=== PATIENT | male | born 1955 | race Caucasian/White ===

== ENCOUNTER 2022-10-02 03:02 | Inpatient (IN) | payer MEDICARE, OTHER ==
[~2022-10-02] VITALS: Ht 167.6 cm; Wt 83.9 kg
--- NOTE | 2022-10-02 03:12 | NUR ---
TO ER BED 4, BIBRA 102 FROM HOME FOR C/O ON AND OFF CP SINCE 1999. RECEIVED 2 NITRO SPRAYS AND 325MG OF ASA FASHION ADVISER, AAOX4, BREATHING EVEN AND NON LABORED, CONNECTED TO MONITOR, AWAITING MD SALVADOR
--- NOTE | 2022-10-02 03:25 | NUR ---
COVID SWAB COLLECTED
[2022-10-02 03:56] LABS: BASOPHILS # (AUTO) 0.1 K/uL (0.0-0.2); BASOPHILS % (AUTO) 0.8 % (0.0-2.0); EOSINOPHILS % (AUTO) 1.7 % (0.0-6.0); HEMATOCRIT 41 % (39-51); HEMOGLOBIN 13.1 g/dL (13.5-17.5); LYMPHOCYTES # (AUTO) 1.9 K/uL (0.8-4.8); MEAN CORPUSCULAR HGB CONC 32 g/dl (31.0-36.0); MEAN CORPUSCULAR VOLUME 87 fL (80-96); MONOCYTES % (AUTO) 10.4 % (2.0-12.0); NEUTROPHILS # (AUTO) 6.5 K/uL (1.8-8.9); NEUTROPHILS % (AUTO) 67.1 % (43.0-81.0); PLATELET COUNT (AUTO) 308 K/uL (150-450); RED BLOOD CELL COUNT(AUTO) 4.68 MIL/uL (4.5-6.0); WHITE BLOOD COUNT (AUTO) 9.7 K/uL (4.3-11.0)
[2022-10-02 04:05] LABS: CALCIUM, SERUM 9.1 mg/dL (8.5-10.1); CARBON DIOXIDE 28 mmol/L (21-32); CHLORIDE 99 mmol/L (98-107); CREATININE 1.2 mg/dL (0.6-1.3); GLUCOSE 212 mg/dL (74-106); POTASSIUM 4.9 mmol/L (3.5-5.1); SODIUM SERUM 135 mmol/L (136-145); UREA NITROGEN, BLOOD 16 mg/dL (7-18)
[2022-10-02 04:07] LABS: D-DIMER 0.35 mg/L(FEU (0.17-0.50)
--- NOTE | 2022-10-02 04:50 | NUR ---
US TECH AT BED SIDE
--- NOTE | 2022-10-02 06:13 | NUR ---
TAKEN TO CT VIA PITO
[2022-10-02] MEDS ORDERED: Z GUARD REMEDY 4 OZ OINT TP PRN (07:00)
[2022-10-02] MEDS ORDERED: ACETAMINOPHEN 325 MG TABLET PO PRN (07:00)
[2022-10-02] MEDS ORDERED: MAG HYDROX/AL HYDROX/SIMETH 30 ML UDC PO PRN (07:00)
[2022-10-02] MEDS ORDERED: ONDANSETRON HCL/PF 4 MG/2 ML VIAL IVP PRN (07:00)
[2022-10-02] MEDS ORDERED: ZOLPIDEM TARTRATE 5 MG TABLET PO PRN (07:00)
[2022-10-02] MEDS ORDERED: MAGNESIUM HYDROXIDE 30 ML UDC PO PRN (07:00)
[2022-10-02] MEDS ORDERED: ASPIRIN 81 MG TAB.CHEW PO PRN (07:30)
[2022-10-02] MEDS ORDERED: *INSULIN REGULAR(HUMULIN R)HUM 100 UNIT/ML VIAL SQ PRN (07:30)
[2022-10-02] MEDS ORDERED: DEXTROSE 50%-WATER 50 ML DISP.SYRIN IV PRN (07:30)
--- NOTE | 2022-10-02 07:42 | NUR ---
room 312-1
[2022-10-02] MEDS ORDERED: ICOS1CAP PO (07:43)
[2022-10-02] MEDS ORDERED: UBID100C13 PO (07:43)
[2022-10-02] MEDS ORDERED: EZET10TA32 PO (07:43)
[2022-10-02] MEDS ORDERED: ASPI-1420 PO (07:43)
[2022-10-02] MEDS ORDERED: B CO1TAB6 PO (07:43)
[2022-10-02] MEDS ORDERED: DAPA10TA PO (07:43)
[2022-10-02] MEDS ORDERED: GLIM4TAB37 PO (07:43)
[2022-10-02] MEDS ORDERED: METO-357 PO (07:43)
[2022-10-02] MEDS ORDERED: PANT40TA49 PO (07:43)
[2022-10-02] MEDS ORDERED: METF-442 PO (07:43)
[2022-10-02] MEDS ORDERED: CLOP75TA15 PO (07:43)
[2022-10-02] MEDS ORDERED: PIOG30TA10 PO (07:43)
[2022-10-02] MEDS ORDERED: SEMA7TAB PO (07:43)
[2022-10-02] MEDS ORDERED: ATOR40TA PO (07:43)
[2022-10-02] MEDS ORDERED: MULT-447 PO (07:43)
--- NOTE | 2022-10-02 08:13 | NUR ---
MEGHA MCGOWAN, WILL CALL BACK FOR REPORT
--- NOTE | 2022-10-02 08:20 | NUR ---
OKAY FOR PT TO EAT BREAKFAST PER DR TORRE.
--- NOTE | 2022-10-02 08:24 | NUR ---
PT REPORT GIVEN TO MEGHA MCGOWAN
[2022-10-02] MEDS ORDERED: SEMAGLUTIDE 7 MG PO SCH (09:00)
[2022-10-02] MEDS ORDERED: methylPREDNISolone SOD SUCC 125 MG/2ML VIAL IV ONE (10:30)
[2022-10-02 10:47] VITALS: BP 126/91
[2022-10-02 10:50] VITALS: BP 126/91
[2022-10-02] MEDS: BLOOD SUGAR DIAGNOSTIC 1 EACH STRIP VI SCH ×4 (10:50→21:45)
--- NOTE | 2022-10-02 10:54 | NUR ---
PT TRANSFERRED TO 312-1 VIA [facility] ACLS PROTOCOL. WARM HANDOFF GIVEN TO MEGHA MCGOWAN.
--- NOTE | 2022-10-02 11:00 | NUR ---
ENTRY LEVEL SOFTWARE ENGINEER ADMITTING NOTES ADMITTED THIS 67 YO MALE TO UNIT AT 1047 VIA GURNEY WITH DX OF CHEST PAIN. PT IS AOX4, ABLE TO MAKE NEEDS KNOWN, SPEAKS FARSI MAINLY, SPEAKS TELUGU FLUENTLY, ORIENTED TO ROOM AND STAFF. VS TAKEN AND RECORDED, PATIENT IS STABLE, DENIES CHEST PAIN OR DISCOMFORT AT THE MOMENT. ON TELEMONITORING WHICH READS SINUS RHYTHM WITH 67 BPM/ ON ROOM AIR, BREATHING EVEN AND UNLABORED. IV ACCESSES NOTED ON LH G#20 AND RAC G#20 SL, BOTH INTACT, PATENT, AND FLUSHING WELL. LUNGS CLEAR ON AUSCULTATION BILATERALLY. ABDOMEN SOFT AND NON-TENDER WITH + BOWEL SOUNDS ON ALL FOUR QUADRANTS. NO SKIN ISSUES NOTED. SAFETY MEASURES IN PLACE: BED IN LOWEST AND LOCKED POSITION, SIDE RAILS X2, CALL LIGHT AND TRAY TABLE WITHIN EASY REACH. WILL CONTINUE TO MONITOR.
--- NOTE | 2022-10-02 11:45 | NUR ---
RN NOTES - CONFIRMED WITH DR TORRE THAT PT WILL NOT REQUIRE NPO AND BE PUT ON CONSISTED CARB DIET VS CARDIAC DIET (PREVIOUS DIET)
[2022-10-02 12:00] VITALS: BP 113/58
[2022-10-02] MEDS: VALSARTAN 80 MG TABLET PO SCH (12:06)
[2022-10-02] MEDS: METFORMIN 500 MG TABLET PO SCH ×2 (12:07→16:01)
[2022-10-02] MEDS: EZETIMIBE 10 MG TABLET PO SCH (12:07)
[2022-10-02] MEDS: GLIMEPIRIDE 4 MG TABLET PO SCH ×2 (12:07→16:01)
[2022-10-02] MEDS: CLOPIDOGREL BISULFATE 75 MG TABLET PO SCH (12:07)
[2022-10-02] MEDS: PANTOPRAZOLE 40 MG TABLET.DR PO SCH (12:08)
[2022-10-02] MEDS: APIXABAN 5 MG TABLET PO SCH ×2 (12:08→16:02)
[2022-10-02] MEDS: METOPROLOL SUCCINATE 50 MG TAB.SR.24H PO SCH (12:09)
[2022-10-02] MEDS: INSULIN REGULAR, HUMAN 100 UNIT/ML 3 ML VIAL SQ PRN ×3 (12:11→21:43)
[2022-10-02] MEDS: ASPIRIN EC 81 MG TABLET.DR PO SCH (12:20)
--- NOTE | 2022-10-02 15:01 | NUR ---
RN NOTES - RECEIVED A CALL FROM PHARMACY - NO FORMULARY FOR HOME MEDS JETT, REBTREVS, VASCEPA - INFORMED PATIENT TO ASK FAMILY TO PROVIDE SO WE CAN DISPENSE. PT AGREED, WILL CONTINUE TO FOLLOW UP.
--- NOTE | 2022-10-02 15:22 | NUR ---
RN NOTES - DR TORRE ORDERED CT SCAN OF THE ABDOMEN WITH CONTRAST. PT IS ALLERGIC TO IODINE - HIVES, ITCH, AND SHAKING, WANTS TO PROCEED WITH THE PROCEDURE STILL. ORIGINALLY ORDERED SOLU-MEDROL 125 MG VIA IV ONCE 30 MINS PRIOR TO THE PROCEDURE. SPOKE WITH MACK Esphion AND ASKED FOR THE MD TO CHANGE DOSE TO SOLUMEDROL 40 MG IV AND BENADRYL 50 MG IV ONE HOUR PRIOR TO THE PROCEDURE PER PROTOCOL. APPROVED, I INFORMED LILLY, JUST AWAITING GO SIGNAL FROM THEM AT 1520, WILL CALL AGAIN AFTER 30 MINS TO CONFIRM PROCEDURE PREP.
[2022-10-02] MEDS: PIOGLITAZONE HCL 15 MG TABLET PO SCH (15:29)
[2022-10-02] MEDS ORDERED: diphenhydrAMINE HCL 50 MG/ML VIAL IV PRN (15:30)
[2022-10-02] MEDS ORDERED: methylPREDNISolone SOD SUCC 40 MG/ML VIAL IV PRN (15:30)
[2022-10-02 16:00] VITALS: BP 140/88
[2022-10-02] MEDS ORDERED: CT SWABBABLE VALVE TRANS SET 1 EA INFUS.SET MC ONE (16:13)
[2022-10-02] MEDS ORDERED: IV NS 0.9% 250 ML IV ONE (16:13)
[2022-10-02] MEDS ORDERED: IOHEXOL-300 100 ML VIAL IV ONE (16:13)
--- NOTE | 2022-10-02 16:35 | NUR ---
RN NOTES - PATIENT REPORTS NAUSEA AFTER SOLU-MEDROL AND DIPHENHYDRAMINE IV - GIVEN PATIENT BAG. ADMINISTERED ZOFRAN 4 MG VIA IV. WILL CONTINUE TO MONITOR.
--- NOTE | 2022-10-02 16:37 | NUR ---
RN NOTES -PATIENT TAKEN TO CT SCAN VIA HIS BED
--- NOTE | 2022-10-02 17:15 | NUR ---
RN NOTES - PATIENT BACK FROM CT SCAN PROCEDURE WITH , PATIENT ASLEEP, NO NOTED ALLERGIC REACTIONS, NOT IN ANY FORM OF RESPIRATORY DISTRESS.
[2022-10-02] MEDS ORDERED: ATORVASTATIN 40 MG TABLET PO SCH (18:00)
--- NOTE | 2022-10-02 18:48 | NUR ---
WALLPAPER INSPECTOR AND SHIPPER CLOSING NOTES PATIENT AWAKE IN BED WITH HOB ELEVATED, AOX4, CALM AND COOPERATIVE, ON ROOM AIR WITH NO SHORTNESS OF BREATH NOTED, BREATHING EVEN AND UNLABORED, PATIENT DENIES CHEST PAIN OR ANY DISCOMFORT AT THE MOMENT. STILL WITH THE SAME IV ACCESSES, SL, INTACT. NOT SHOWING ANY SIGNS OR SYMPTOMS OF ALLERGIC REACTION FROM IODINE. SAFETY MEASURES MAINTAINED: BED IN LOWEST AND LOCKED POSITION, SIDE RAILS X2 UP, TRAY TABLE AND CALL LIGHT WITHIN EASY REACH. WILL ENDORSE TO THE SALES SUPPORT MANAGER NURSE.
--- NOTE | 2022-10-02 18:52 | NUR ---
TELEMONITORING SHOWS SINUS RHYTHM WITH 73 BPM.
--- NOTE | 2022-10-02 19:38 | NUR ---
RN OPENING NOTE; RECEIVED PT IN BED AAOX4 FAMILY AT BEDSIDE,ABLE TO MAKE NEEDS KNOWN,CHECO WELL ON RM AIR SATTING 99%,NO SIGN SOB/DISTRESS NOTED,NO COMPLAIN OF PAIN/DISCOMFORT AT THIS TIME,SAFETY MEASURE IN PLACE,CALL LIGHT WITHIN REACH,WILL CONTINUE TO MONITOR.
[2022-10-02 20:00] VITALS: BP 133/67
--- NOTE | 2022-10-02 23:21 | NUR ---
RN NOTE; PATIENT COMPLAINED ITCHING ALL OVER HIS BODY,TEXTED INTERVENTION ANALYST VIVIEN WEATHERS.WITH A NEW ORDER 1V 50MG X1.
[2022-10-02] MEDS ORDERED: diphenhydrAMINE HCL 50 MG/ML VIAL IV ONE (23:30)
[2022-10-03] VITALS: BP 129/73
[2022-10-03 04:00] VITALS: BP 142/79
--- NOTE | 2022-10-03 04:09 | NUR ---
RN NOTES; PT COMPLAINED OF ITCHY AND SHAKING,BODY LOOK RED,TEXTED BILLET INSPECTOR JASIEL PUGA,WITH A NEW ORDER,SOLU MEDROL 40MG IV X1 AND BENADRYL 50MG IV X1.
[2022-10-03] MEDS ORDERED: methylPREDNISolone SOD SUCC 40 MG/ML VIAL IV ONE (04:30)
[2022-10-03] MEDS ORDERED: IV NS 0.9% 1,000 ML IV ONE (04:30)
[2022-10-03] MEDS ORDERED: diphenhydrAMINE HCL 50 MG/ML VIAL IV ONE (04:30)
[2022-10-03 06:08] LABS: BASOPHILS # (AUTO) 0.1 K/uL (0.0-0.2); BASOPHILS % (AUTO) 0.6 % (0.0-2.0); EOSINOPHILS % (AUTO) 0.3 % (0.0-6.0); HEMATOCRIT 42 % (39-51); HEMOGLOBIN 13.5 g/dL (13.5-17.5); LYMPHOCYTES # (AUTO) 0.8 K/uL (0.8-4.8); LYMPHOCYTES % (AUTO) 7.1 % (20.0-44.0); MEAN CORPUSCULAR HGB CONC 32 g/dl (31.0-36.0); MEAN CORPUSCULAR VOLUME 86 fL (80-96); MONOCYTES # (AUTO) 0.6 K/uL (0.1-1.30); MONOCYTES % (AUTO) 4.8 % (2.0-12.0); NEUTROPHILS # (AUTO) 10.2 K/uL (1.8-8.9); NEUTROPHILS % (AUTO) 87.2 % (43.0-81.0); PLATELET COUNT (AUTO) 319 K/uL (150-450); RED BLOOD CELL COUNT(AUTO) 4.85 MIL/uL (4.5-6.0); WHITE BLOOD COUNT (AUTO) 11.7 K/uL (4.3-11.0)
--- NOTE | 2022-10-03 06:21 | NUR ---
RN CLOSING NOTE; PT IN BED AAOX4,ABLE TO MAKE NEEDS KNOWN,CHECO WELL ON RM AIR SATTING 98%,NO SIGN SOB/DISTRESS NOTED,NO COMPLAIN OF PAIN/DISCOMFORT DURING SHIFT,DUE MEDS GIVEN ORDER,ALL NEEDS ATTENDEDIV ACCESS ON LHAND 20G,RAC 20G SL PATENT AND INTACT,,SAFETY MEASURE IN PLACE,CALL LIGHT WITHIN REACH,WILL ENDORSED TO NEXT SHIFT.
[2022-10-03] MEDS: INSULIN REGULAR, HUMAN 100 UNIT/ML 3 ML VIAL SQ PRN ×2 (06:46→11:44)
[2022-10-03] MEDS: BLOOD SUGAR DIAGNOSTIC 1 EACH STRIP VI SCH ×2 (06:47→11:43)
--- NOTE | 2022-10-03 07:26 | NUR ---
TERMINAL GAUGER OPENING NOTE: PT RECEIVED IN BED, AWAKE. A/O X 4. ON RA, TOLERATED WELL. WITH NO SIGN OF ACUTE RESPIRATORY DISTRESS. ABLE TO MAKE NEEDS KNOWN. NO C/O PAIN AND DISCOMFORT AT THIS TIME. REDNESS IN THE BODY PARTICULARLY IN THE BACK, LEGS AND FEET NOTED. IV ACCESS IN L HAND #20G AND RAC #20G SL, C/D/I. WITH CYBER LEGAL ADVISOR IN SR, HR-99. SAFETY MEASURE IN PLACE: CALL LIGHT AND TRAY TABLE WITHIN REACH, BED LOCKED AND IN LOWEST POSITION, SIDE RAILS X 2. WILL CONTINUE TO MONITOR.
[2022-10-03 07:34] LABS: CALCIUM, SERUM 9.1 mg/dL (8.5-10.1); CREATININE 1.3 mg/dL (0.6-1.3); MAGNESIUM 1.8 mg/dL (1.8-2.4); PHOSPHORUS 3.5 mg/dL (2.5-4.9); POTASSIUM 4.9 mmol/L (3.5-5.1)
[2022-10-03 08:00] VITALS: BP 139/68
[2022-10-03] MEDS: METOPROLOL SUCCINATE 50 MG TAB.SR.24H PO SCH (08:47)
[2022-10-03] MEDS: EZETIMIBE 10 MG TABLET PO SCH (08:47)
[2022-10-03 08:48] VITALS: BP 139/68
[2022-10-03] MEDS: GLIMEPIRIDE 4 MG TABLET PO SCH (08:48)
[2022-10-03] MEDS: APIXABAN 5 MG TABLET PO SCH (08:48)
[2022-10-03] MEDS: ASPIRIN EC 81 MG TABLET.DR PO SCH (08:48)
[2022-10-03] MEDS: VALSARTAN 80 MG TABLET PO SCH (08:48)
[2022-10-03] MEDS: METFORMIN 500 MG TABLET PO SCH (08:49)
[2022-10-03] MEDS: PIOGLITAZONE HCL 15 MG TABLET PO SCH (08:49)
[2022-10-03] MEDS: CLOPIDOGREL BISULFATE 75 MG TABLET PO SCH (08:49)
[2022-10-03] MEDS: PANTOPRAZOLE 40 MG TABLET.DR PO SCH (08:49)
[2022-10-03] MEDS ORDERED: FARXIGA 10 MG PO SCH (09:00)
[2022-10-03] MEDS ORDERED: VASCEPA 1 GM PO SCH (09:00)
[2022-10-03] MEDS ORDERED: METH4TAB16 PO (12:08)
[2022-10-03] MEDS ORDERED: INSULIN REGULAR, HUMAN 100 UNIT/ML 10 ML VIAL SQ ONE (13:00)
--- NOTE | 2022-10-03 13:03 | NUR ---
RN NOTES PT NOTED WITH BS OF 403MG/DL, REJECTED AND REPEATED WITH RESULT OF 413MG/DL. REGULAR INSULIN 15UNITS ADMINISTERED PER SLIDING SCALE. BLOOD SUGAR RECHECKED AFTER 30 MINUTES AND STILL HIGH 406MG/DL. DR TORRE MADE AWARE WITH ORDER TO ADMINISTER EXTRA 15 UNITS OF REGULAR INSULIN AND WAS CARRIED OUT. WILL CONTINUE TO MONITOR.
--- NOTE | 2022-10-03 16:35 | NUR ---
RN DISCHARGED NOTE PT DISCHARGED HOME IN STABLE CONDITION, AMBULATORY. A/O X 4 AND ABLE TO MAKE NEEDS KNOWN. VITAL SIGNS STABLE. NO SKIN ISSUES NOTED. STABLE ON RA, TOLERATED WELL. IV ACCESS IN L HAND #20G AND RAC #20G REMOVED WITH NO ACTIVE BLEEDING NOTED, DRY DRESSING APPLIED IN SITE. STILE RIPSAW OPERATOR DETACHED FROM PT. HEALTH TEACHING AND DISCHARGED INSTRUCTIONS GIVEN, VERBALIZED UNDERSTANDING. HOME MEDICATIONS HANDED TO PT. ALL BELONGINGS ACCOUNTED TO PT. Addendum: 10/03/22 at 1642 by Azalia Pisano RN ADDENDUM PT LEFT @ 1630 AMBULATORY ACCOMPANIED BY MEGHA MORSE IN THE LOBBY. PICKED UP PT.
== END 2022-10-03 16:32 | disposition home or self-care (01) | DRG 303 ==
LOC: ER 03:04 → TELE 08:01
PROVIDERS: ADMIT Internal Medicine; ATTEND Internal Medicine
DX: I25.119 Atherosclerotic heart disease of native coronary artery with unspecified angina pectoris (principal); J90 Pleural effusion, not elsewhere classified; J98.11 Atelectasis; Z95.1 Presence of aortocoronary bypass graft; I48.91 Unspecified atrial fibrillation; Z20.822 Contact with and (suspected) exposure to COVID-19; Z95.5 Presence of coronary angioplasty implant and graft; E11.9 Type 2 diabetes mellitus without complications; Z91.041 Radiographic dye allergy status; Z87.891 Personal history of nicotine dependence; Z79.82 Long term (current) use of aspirin; Z79.84 Long term (current) use of oral hypoglycemic drugs; Z79.02 Long term (current) use of antithrombotics/antiplatelets; Z79.899 Other long term (current) drug therapy; N20.0 Calculus of kidney; N28.1 Cyst of kidney, acquired; K21.9 Gastro-esophageal reflux disease without esophagitis
CPT/HCPCS: 36415; 70450-TC; 71045-TC; 71250-TC; 74170-TC; 80048-TC; 80061-TC; 82962-TC; 83735-TC; 83880; 84100-TC; 84484-TC; 85025-TC; 85378-TC; 85730-TC; 87081-TC; 93307-TC; 93880-TC; C9803; G0378; J1200; J1815; J2405; J2920; J2930; J7030; J7050; Q9967

== ENCOUNTER 2024-01-01 00:06 | Emergency (ER) | payer BC, MEDICARE ==
[~2024-01-01] VITALS: Ht 167.6 cm; Wt 83.9 kg
[~2024-01-01 00:06] MED LIST: ASPI-1420 PO; ATOR40TA PO; B CO1TAB6 PO; CLOP75TA15 PO; DAPA10TA PO; EZET10TA32 PO; GLIM4TAB37 PO; ICOS1CAP PO; METF-442 PO; METH4TAB16 PO; METO-357 PO; MULT-447 PO; PANT40TA49 PO; PIOG30TA10 PO; SEMA7TAB PO; UBID100C13 PO
[2024-01-01 00:54] VITALS: BP 178/88; TEMP 98.6; O2SAT 94
[2024-01-01] MEDS: SILVER NITRATE APPLICATOR 1 EA BOX TP ONE (01:30)
[2024-01-01] MEDS ORDERED: CARB-174 EACH EAR (01:31)
== END 2024-01-01 01:36 | disposition home or self-care (01) ==
LOC: ER 00:14
DX: S00.412A Abrasion of left ear, initial encounter (principal); I10 Essential (primary) hypertension; E11.9 Type 2 diabetes mellitus without complications; Z86.79 Personal history of other diseases of the circulatory system; Z91.040 Latex allergy status; F17.200 Nicotine dependence, unspecified, uncomplicated; X58.XXXA Exposure to other specified factors, initial encounter; Y93.89 Activity, other specified; Y92.098 Other place in other non-institutional residence as the place of occurrence of the external cause; Y99.8 Other external cause status